=== PATIENT | male | born 1980 | race Caucasian/White ===

== ENCOUNTER 2019-06-25 23:11 | Emergency (ER) | payer MEDICAID ==
[~2019-06-25] VITALS: Ht 177.8 cm; Wt 106.6 kg
[2019-06-25 23:16] VITALS: BP 150/81
--- NOTE | 2019-06-25 23:21 | NUR ---
PT AMBULATED TO ED ALEX
[2019-06-25] MEDS ORDERED: KETOROLAC 60 MG/2 ML VIAL IM ONE (23:25)
--- NOTE | 2019-06-25 23:25 | NUR ---
PT AMBULATED TO BED #4
[2019-06-25 23:26] VITALS: BP 150/81
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
--- NOTE | 2019-06-26 01:14 | NUR ---
Patient discharged with v/s stable. Written and verbal after care instructions given and explained. Patient alert, oriented and verbalized understanding of instructions. Ambulatory with steady gait. All questions addressed prior to discharge. ID band removed. Patient advised to follow up with PMD. Rx of norco and motrin given. Patient educated on indication of medication including possible reaction and side effects. Opportunity to ask questions provided and answered.
== END 2019-06-26 01:14 | disposition home or self-care (01) ==
LOC: MED 23:11
DX: S40.812A Abrasion of left upper arm, initial encounter (principal); F12.10 Cannabis abuse, uncomplicated; V87.8XXA Person injured in other specified noncollision transport accidents involving motor vehicle (traffic), initial encounter; Y93.89 Activity, other specified; Y92.488 Other paved roadways as the place of occurrence of the external cause; Y99.8 Other external cause status
CPT/HCPCS: 90471; 90715; 96372; 99283; J1885

== ENCOUNTER 2024-01-20 17:24 | Emergency (ER) | payer MEDICAID, OTHER ==
[~2024-01-20] VITALS: Ht 177.8 cm; Wt 99.8 kg
[2024-01-20 17:55] VITALS: BP 129/72; PULSE 84; RESP 18; TEMP 98.4; O2SAT 98
[2024-01-20] MEDS ORDERED: IBUP-2213 PO (19:34)
== END 2024-01-20 19:59 | disposition home or self-care (01) ==
LOC: MED 17:24
DX: S29.012A Strain of muscle and tendon of back wall of thorax, initial encounter (principal); S16.1XXA Strain of muscle, fascia and tendon at neck level, initial encounter; Z79.899 Other long term (current) drug therapy; V49.88XA Car occupant (driver) (passenger) injured in other specified transport accidents, initial encounter; Y93.89 Activity, other specified; Y92.89 Other specified places as the place of occurrence of the external cause; Y99.8 Other external cause status
CPT/HCPCS: 72040; 72072; 99284